=== PATIENT | male | born 2005 | race Caucasian/White ===

== ENCOUNTER 2024-05-16 00:15 | Day surgery (SDC) | payer OTHER, MEDICAID, SELFPAY ==
[2024-05-16] VITALS (30 sets, daily range): BP systolic 101–153; BP diastolic 39–90; PULSE 66–90; RESP 16–21; TEMP 36.2–37.8; O2SAT 99–100
--- NOTE | ~2024-05-16 | CT_ITS ---
CT of the Abdomen and Pelvis: Indication: Abdominal pain Technique: 2.5 mm axial scans were obtained through the abdomen and pelvis following intravenous adm inistration of 100 cc of Omnipaque 350. Dose reduction technique was used on this scan by utilizing a utomated exposure control and iterative reconstruction technique. The dose-length product (DLP) was 2 57.06 mGy-cm. Findings: Scans through the lung bases are unremarkable. The liver, spleen, pancreas, gallbladder, adrenals and kidneys are within normal limits. No evidence of aortic aneurysm. No lymphadenopathy. No bowel obstruction or bowel wall thickening. Probable dilatation of the appendix to 11 mm without s ignificant inflammatory change.. Images through the pelvis were performed. Urinary bladder unremarkable. No pelvic mass seen. No ascit es. Impression: Dilated appendix could reflect early acute appendicitis. Correlate clinically. No abscess or free air . Reviewed, dictated and finalized at [facility]. Impression: Dilated appendix could reflect early acute appendicitis. Correlate clinically. No abscess or free air.
[2024-05-16] MEDS: SODIUM CHLORIDE 0.9% IV 1,000 ML 999 ML IV CONT (07:49)
[2024-05-16 08:03] LABS: Basophils Absolute Auto 0.1 K/mm3 (0.0-0.1); Basophils Percent Auto 0.3 % (0.2-1.2); Hematocrit 45.8 % (42.0-52.0); Hemoglobin 17.1 g/dL (14.0-18.0); Immature Granulocyte Absolute 0.05 K/mm3 (0.00-0.031); Immature Granulocyte Percent A 0.3 % (0-0.5); Lymphocytes Absolute Auto 1.06 K/mm3 (0.9-3.2); Lymphocytes Percent Auto 5.7 % (18.3-44.2); Mean Corpuscular HGB Conc 37.3 g/dl (32-36); Mean Corpuscular Hemoglobin 33.5 pg (26-34); Mean Corpuscular Volume 89.6 fl (80-100); Mean Platelet Volume 9.7 fl (7.4-10.4); Monocytes Absolute Auto 1.2 K/mm3 (0.1-0.6); Monocytes Percent Auto 6.5 % (2.6-8.5); Neutrophils Absolute Auto 16.2 K/mm3 (1.3-6.7); Neutrophils Percent Auto 87.2 % (45.5-73.1); Platelet Count Result 229 k/mm3 (150-375); Red Blood Count 5.11 M/mm3 (4.6-6.20); Red Cell Distribution Width 11.2 % (11.5-14.5); White Blood Count 18.6 K/mm3 (4.5-10.0)
--- NOTE | 2024-05-16 08:07 | ED.NAVMDI ---
HPI - Nausea/Vomiting/Diarrhea General Chief complaint: Nausea/Vomiting/Diarrhea Stated complaint: abd pain, nausea, vomiting Time Seen by Provider: 05/16/24 07:33 History of Present Illness HPI Narrative: This is a 18-year-old previously healthy male who presents to the emergency depart with a chief complaint of sudden-onset nausea, vomiting and watery diarrhea for the last several hours. Patient states that he has been having some lower abdominal pain after the onset of his symptoms and attributes them to eating tacos earlier yesterday night. Patient states his symptoms started only several minutes after eating these tacos from a new location reason every eating that before. He has been having multiple episodes of nauseousness, vomiting and profuse watery diarrhea. Denies any fever, chills, chest pain, shortness a breath, sick contacts. No one else was with him or ate the same foods. Was otherwise in his normal state of health. Related Data Allergies Allergy/AdvReac Type Severity Reaction Status Date / Time No Known Allergies Allergy Verified 05/16/24 07:49 Review of Systems Review of Systems: As reviewed above in HPI Exam Narrative: GENERAL: [Well-appearing, well-nourished, and in no acute distress.] HEAD: [Normocephalic, atraumatic.] EYES: [PERRLA and EOMI.] ENT: Nares clear, no rhinorrhea or epistaxis. Mucous membranes moist. NECK: Supple. CHEST: [Clear to auscultation. No respiratory distress.] HEART: [Regular rate and rhythm]. No murmur heard. [Normal peripheral pulses.] ABDOMEN: [Soft, nondistended], tenderness in the lower abdominal quadrants without any peritonitis, [No rigidity or guarding] no inguinal hernias EXTREMITIES: Normal range of motion. [No edema.] SKIN: Warm, dry, no rash. NEURO: [No focal deficits]. Alert and oriented [x3.] PSYCH: [Normal mood and affect.] Course Vital Signs Vital signs: Vital Signs Temperature 36.2 C L 05/16/24 00:55 Pulse Rate 90 05/16/24 00:55 Respiratory Rate 16 05/16/24 00:55 Blood Pressure 129/73 05/16/24 00:55 Pulse Oximetry 100 05/16/24 00:55 Oxygen Delivery Room Air 05/16/24 00:55 Temperature 36.8 C 05/16/24 11:22 Pulse Rate 75 05/16/24 11:22 Respiratory Rate 16 05/16/24 11:22 Blood Pressure 114/68 05/16/24 11:22 Pulse Oximetry 100 05/16/24 11:22 Oxygen Delivery Room Air 05/16/24 00:55 MDM - Nausea/Vomiting/Diarrhea MDM Narrative Medical decision making narrative: This is a 18-year-old previously healthy male presenting with sudden-onset nausea, vomiting, watery diarrhea after eating tacos. He appears well hydrated and not in any acute distress. He has normal reassuring vital signs without any fever. Abdomen is soft, with tenderness in the lower abdominal quadrants without peritonitis but is nondistended and not peritoneal. Differential diagnosis at this time includes gastroenteritis, food poisoning, bacterial gastroenteritis, less likely intra-abdominal process such as colitis or appendicitis. Workup was ordered including CBC, CMP, magnesium, lipase. He was given fluid hydration and antiemetic and pain control therapy with Reglan, diphenhydramine, morphine. Patient was re-evaluated several times and had complete resolution of his pain and at this time is stable for discharge home with a diagnosis of acute diarrheal illness likely secondary to gastroenteritis. Workup revealed a significant leukocytosis of 18.6 which is likely reactive and responsive to patient's nausea and vomiting however does not exclude infectious process. Electrolyte panel was largely reassuring, normal renal function panel. Glucose was normal 138. Hepatic function panel showed some elevations in AST to 301 and ALT at 88, normal bilirubin level. Negative lipase. Patient was re-evaluated while he had improvement in his symptomatology given his laboratory evaluation I believe he warrants a CT scan for better delineation of the source. CT ab
[2024-05-16] MEDS: diphenhydrAMINE HCl INJ 50 MG/ML VIAL 25 MG IV PUSH (08:17)
[2024-05-16] MEDS: METOCLOPRAMIDE HCL INJ 10 MG/2 ML VIAL IV PUSH (08:17)
[2024-05-16] MEDS: MORPHINE SULFATE (*CRX) 4 MG/ML INJ IV PUSH (08:17)
[2024-05-16 08:21] LABS: Alanine Aminotransferase 88 U/L (6-50); Albumin Level 5.2 g/dL (3.7-5.6); Alkaline Phosphatase 92 U/L (58-237); Anion Gap 14 mmol/L (4-12); Aspartate Amino Transferase 301 U/L (17-59); Bilirubin,Total 0.9 mg/dL (0.2-1.3); Blood Urea Nitrogen 13 mg/dL (8-21); Calcium 9.9 mg/dL (8.9-10.7); Carbon Dioxide 27 mmol/L (22-30); Chloride 96 mmol/L (98-107); Estimated CRCL calculation 122 ml/min; Estimated Glomerular Filt Rate > 60; Glucose 138 mg/dL (65-110); Lipase 47 U/L (23-300); Magnesium 1.8 mg/dL (1.6-2.3); Potassium 3.9 mmol/L (3.4-5.0); Sodium 137 mmol/L (134-143)
[2024-05-16 08:35] LABS: Influenza A QL RT-PCR Negative (Negative); Influenza B QL RT-PCR Negative (Negative); RSV RNA, RT-PCR Negative (Negative); SARS-CoV-2 RNA PCR Negative (Negative)
[2024-05-16] MEDS: metroNIDAZOLE 500 MG/ISO 100ML 500 MG/100 ML BAG 100 MG IVPB (10:32)
--- NOTE | 2024-05-16 11:47 | PC.NURSE ---
Gave report to Pre OP RN at this time. Pre OP rm 10 obtained for patient.
--- NOTE | 2024-05-16 11:53 | PM.IMHP ---
H&P: HPI History of Present Illness Date/Time: 05/16/24 11:53 Chief Complaint: acute appendicitis Narrative: The pt is a 18 y/o M presenting to ED c/o RLQ abd pain, N/V, watery diarrhea. Pt reports acute onset of sx after eating tacos last night. Pt reports pain is localized in RLQ. Pt reports no appetite since onset. Pt denies f/c, previous episodes. Workup, including CT, significant for acute appendictis. Review of Systems Review of Systems: All systems reviewed & are unremarkable except as noted in HPI and below Meds Home Medications and Allergies Allergies Allergy/AdvReac Type Severity Reaction Status Date / Time No Known Allergies Allergy Verified 05/16/24 07:49 Vital Signs Vital Signs - 24 hr 05/16/24 00:55 05/16/24 07:54 05/16/24 07:56 Temperature 36.2 C L 37.2 C Pulse Rate 90 70 Respiratory Rate 16 18 Blood Pressure 129/73 128/90 Pulse Oximetry 100 100 Oxygen Delivery Room Air 05/16/24 07:36 05/16/24 07:37 05/16/24 07:45 Temperature Pulse Rate Respiratory Rate Blood Pressure 130/73 Pulse Oximetry 100 100 100 Oxygen Delivery 05/16/24 07:46 05/16/24 08:00 05/16/24 08:01 Temperature Pulse Rate Respiratory Rate Blood Pressure 128/90 119/72 Pulse Oximetry 100 100 100 Oxygen Delivery 05/16/24 08:15 05/16/24 08:16 05/16/24 08:30 Temperature Pulse Rate Respiratory Rate Blood Pressure 125/64 Pulse Oximetry 100 100 100 Oxygen Delivery 05/16/24 08:31 05/16/24 08:32 05/16/24 08:45 Temperature Pulse Rate Respiratory Rate Blood Pressure 104/45 L Pulse Oximetry 100 100 100 Oxygen Delivery 05/16/24 08:46 05/16/24 09:00 05/16/24 09:01 Temperature Pulse Rate Respiratory Rate Blood Pressure 101/39 L 108/41 L Pulse Oximetry 100 99 Oxygen Delivery 05/16/24 09:15 05/16/24 09:16 05/16/24 09:31 Temperature Pulse Rate Respiratory Rate Blood Pressure 105/44 L 108/63 Pulse Oximetry 100 100 Oxygen Delivery 05/16/24 11:22 Temperature 36.8 C Pulse Rate 75 Respiratory Rate 16 Blood Pressure 114/68 Pulse Oximetry 100 Oxygen Delivery Exam Const: General: cooperative, no acute distress and uncomfortable HENMT: Head: normal to inspection, normocephalic and atraumatic Eyes: General: appearance normal, both eyes and all related structures Neck: Neck: normal visual inspection, full ROM and no lymphadenopathy Resp: Auscultation: clear to auscultation bilaterally Cardio: Rate: regular rate Rhythm: regular rhythm GI: Inspection: distended GI Palp: Yes abdominal tenderness, Yes Soft to palpation, Yes Tenderness to palpation present (GI), No Guarding due to palpation present (GI) and No Rigid due to palpation Skin: General skin exam: normal color and no rashes or lesions noted Neuro: General: patient oriented x3 and CN's II-XI intact bilaterally Extrem: General: normal to inspection and full ROM H&P: Results Labs Labs: Short CBC 05/16/24 Range/Units 07:52 WBC 18.6 H (4.5-10.0) K/mm3 Hgb 17.1 (14.0-18.0) g/dL Hct 45.8 (42.0-52.0) % Plt Count 229 (150-375) k/mm3 BMP 05/16/24 07:52 Sodium 137 Potassium 3.9 Chloride 96 L Carbon Dioxide 27 BUN 13 Creatinine 0.70 Glucose 138 H Calcium 9.9 Liver Function 05/16/24 Range/Units 07:52 Total Bilirubin 0.9 (0.2-1.3) mg/dL AST 301 H (17-59) U/L ALT 88 H (6-50) U/L Alkaline Phosphatase 92 (58-237) U/L Albumin 5.2 (3.7-5.6) g/dL Imaging CT scan - abdomen: My impression: acute appendicitis Assessment and Plan Assessment and plan (1) Acute appendicitis: Code(s): K35.80 - Unspecified acute appendicitis Status: Acute Assessment and Plan: will setup for urgent appendectomy, NPO, IV abx
--- NOTE | 2024-05-16 11:58 | WPDHPUPDATE1 ---
History and Physical Update Update Date/Time: 05/16/24 11:58 History and Physical has been reviewed, including an updated exam of the patient. There are NO changes in the patient's condition. Risks, benefits, and alternatives have been discussed and questions answered. Patient agrees to proceed with procedure.
--- NOTE | 2024-05-16 11:59 | WPDHPUPDATE1 ---
History and Physical Update Update Date/Time: 05/16/24 11:59 History and Physical has been reviewed, including an updated exam of the patient. There are NO changes in the patient's condition. Risks, benefits, and alternatives have been discussed and questions answered. Patient agrees to proceed with procedure.
[2024-05-16] MEDS: LACTATED RINGERS 1,000 ML 30 ML IV CONT (12:00)
--- NOTE | 2024-05-16 13:12 | WPDANESEPPF ---
Anes - Initial Pre Proc Eval Procedure: Operation Date: 05/16/24 14:30 Proposed Procedures p Laparoscopic Appendectomy - Miriam Gamez MD Date/Time: 05/16/24 13:12 Surgeon: Miriam Gamez MD Pre Op Diagnosis: abd pain, nausea, vomiting Patient Data Age: 18 Gender: M Height: 1.63 m Weight: 65.3 kg Last Vital Signs Temp 36.8 C 05/16/24 11:22 Pulse 75 05/16/24 11:22 Resp 16 05/16/24 11:22 BP 114/68 05/16/24 11:22 Pulse Ox 100 05/16/24 11:22 O2 Del Method Room Air 05/16/24 00:55 Allergies Allergy/AdvReac Type Severity Reaction Status Date / Time No Known Allergies Allergy Verified 05/16/24 07:49 Laboratory Tests 05/16/24 07:52 WBC 18.6 H K/mm3 (4.5-10.0) RBC 5.11 M/mm3 (4.6-6.20) Hgb 17.1 g/dL (14.0-18.0) Hct 45.8 % (42.0-52.0) MCV 89.6 fl (80-100) MCH 33.5 pg (26-34) MCHC 37.3 H g/dl (32-36) RDW 11.2 L % (11.5-14.5) Plt Count 229 k/mm3 (150-375) MPV 9.7 fl (7.4-10.4) Immature Gran % (Auto) 0.3 % (0-0.5) Neut % (Auto) 87.2 H % (45.5-73.1) Lymph % (Auto) 5.7 L % (18.3-44.2) [place] % (Auto) 6.5 % (2.6-8.5) Eos % (Auto) 0.0 % (0-4.4) Baso % (Auto) 0.3 % (0.2-1.2) Lymph # (Auto) 1.06 K/mm3 (0.9-3.2) [place] # (Auto) 1.2 H K/mm3 (0.1-0.6) Eos # (Auto) 0.0 K/mm3 (0-0.3) Baso # (Auto) 0.1 K/mm3 (0.0-0.1) Abs Immat Gran (auto) 0.05 H K/mm3 (0.00-0.031) Absolute Neuts (auto) 16.2 H K/mm3 (1.3-6.7) Absolute Nucleated RBC 0.000 K/mm3 (0.0-0.012) Nucleated RBC % 0.0 % (0.0-0.2) Sodium 137 mmol/L (134-143) Potassium 3.9 mmol/L (3.4-5.0) Chloride 96 L mmol/L (98-107) Carbon Dioxide 27 mmol/L (22-30) Anion Gap 14 H mmol/L (4-12) BUN 13 mg/dL (8-21) Creatinine 0.70 mg/dL (0.7-1.3) Estim Creat Clear Calc 122 ml/min Estimated GFR > 60 (59 - ) Glucose 138 H mg/dL (65-110) Calcium 9.9 mg/dL (8.9-10.7) Magnesium 1.8 mg/dL (1.6-2.3) Total Bilirubin 0.9 mg/dL (0.2-1.3) AST 301 H U/L (17-59) ALT 88 H U/L (6-50) Alkaline Phosphatase 92 U/L (58-237) Total Protein 9.0 H g/dL (6.3-8.6) Albumin 5.2 g/dL (3.7-5.6) Lipase 47 U/L (23-300) Influenza A (RT-PCR) Negative (Negative) Influenza B (RT-PCR) Negative (Negative) RSV (RT-PCR) Negative (Negative) SARS-CoV-2 RNA (RT-PCR) Negative (Negative) Patient hx anesthesia problems: none Family hx anesthesia problems: none Results Review: All pre-operative results and documents have been reviewed as part of the pre-operative evaluation. [facility] Social History Social History (Updated 05/16/24 @ 13:20 by Sagar Lowry DO) Tobacco type: e-cigarettes/vaping Substance use type: marijuana Other substance usage details: daily Anes - Eval Final PreProcedure Day of Procedure 05/16/24 13:12 Patient weight: normal Heart: regular rate and rhythm Lungs: clear to auscultation Airway: Mallampati scale class II Neurological: alert and oriented Last oral intake: >/= 8 hours ASA classification: III Emergent: yes Anesthetic plan: proceed Anesthesia type and monitoring: general ETT and standard monitoring Results Review: All pre-operative results and documents have been reviewed as part of the pre-operative evaluation. Informed Consent: The patient's anesthetic plan and its attendant risks and benefits were discussed with the patient/family/POA. Questions were solicited and answers provided to the satisfaction of the patient/family/POA.
[2024-05-16] MEDS: BUPIVACAINE/EPINEPHRINE 0.5% 50 ML VIAL 30 ML INFILTRATE (13:31)
--- NOTE | 2024-05-16 14:45 | W.PM.PROC2 ---
Procedure Note - Detailed Date of Procedure 05/16/24 Pre-op Diagnosis acute appendicitis Post-op Diagnosis Same Procedure Performed Laparoscopic appendectomy Surgeon Miriam Gamez MD Anesthesia General Indications 18-year-old male presenting to the emergency department with acute appendicitis Findings Acute uncomplicated appendicitis Description of Procedure The patient was taken to the operating room and placed in the supine position. After adequate induction of general anesthesia, the patient was prepped and draped in the normal sterile fashion. A time-out was then done to verify the patient's identity, as well as the procedure being performed. Began by making a 5 mm incision in the infraumbilical region. Through this a Veress needle was placed in the peritoneal cavity and CO2 gas was insufflated. After adequate pneumoperitoneum was achieved, the Veress needle was removed and a 5 mm port trocar was placed through this incision. I then placed the laparoscopic through this trocar and under direct visualization placed 2 further 5 mm suprapubic port, as well as an additional 12 mm port in the left lower abdomen. At this point, the cecum was identified and retracted both medially and cephalad. This allowed us to expose the appendix. The appendix was noted to be inflamed and injected especially towards the tip, however no obvious perforation was noted. I was then able to grasp the tip of the appendix and retract this laterally and anteriorly. This allowed us to expose the base of the appendix with the cecum. At this point I created a window between the appendix and the mesoappendix using a [place] dissector. Once accomplished, I transected the mesoappendix with a white vascular staple load. The stapler was then re-loaded with a blue thick tissue staple load and this was used to transect the base of the appendix with the cecum. I then placed the appendiceal specimen in an endo-pouch and removed this through the 12 mm port site. The specimen will now be sent to pathology for further review. I then copiously irrigated the right lower quadrant. No other pathology was noted and both staple lines were noted to be intact and hemostatic. I then proceeded to close the fascia of the 12 mm left lower quadrant port site with a [place] cone an 0 Vicryl suture. The abdomen was then desufflated and all ports removed. All port sites were then closed with 4-0 Monocryl subcuticular suture. Dermabond was placed on all wounds. The patient tolerated the procedure well and was extubated postoperatively. He will be transferred to the recovery room in stable condition. Estimated Blood Loss 5 Drains No Packing No Pathology Yes Complications No immediate complications Condition Stable Disposition PACU [facility] Billing Surgery - Charge Forward: Surgery Billing
[2024-05-16] MEDS: oxyCODONE HCL (*CRX) 5 MG TAB IR PO (15:21)
--- NOTE | 2024-05-16 16:08 | SUR.PHASEII ---
1605: Patient dressed and ready for DC. Waiting on care coordination to coordinate a ride.
--- NOTE | 2024-05-16 16:13 | PCCCNOTE ---
Gave the pt a cab voucher for transportation to his home address.[place].
== END 2024-05-16 16:50 | disposition home or self-care (01) ==
LOC: ANHED 10:46 → ANHSURGERY 11:03
PROVIDERS: Emergency Medicine; Emergency Provider Student in an Organized Health Care Education/Training Program; Visit Provider Surgery
PROC: 0DTJ4ZZ Resection of Appendix, Percutaneous Endoscopic Approach (ICD-10-PCS; CPT 44970; principal; 2024-05-16 14:30)
DX: K36 Other appendicitis (principal); F17.290 Nicotine dependence, other tobacco product, uncomplicated; F12.90 Cannabis use, unspecified, uncomplicated
CPT/HCPCS: 44970; 36415; 74177; 80053; 83690; 83735; 85025; 87637; 88304; 96365; 96375; 99285; A9270; J0696; J1170; J1200; J1836; J2250; J2270; J2405; J2765; J3010; J7030; J7120; Q9967